=== PATIENT | male | born 1930 | race Asian ===

== ENCOUNTER 2017-10-28 14:16 | Inpatient (IN) | payer MEDICARE, OTHER ==
[2017-10-28] MEDS: SOD CHLORIDE 0.9% 500 ML IV (15:42)
[2017-10-28] MEDS: NITROGLYCERIN 2% 1 GM OINT PKT TD (15:54)
[2017-10-28 15:58] LABS: ADD MAN DIFF? NO
[2017-10-28 16:00] LABS: BASOPHILS % 0.4 % (0.0-2.0); EOSINOPHILS # 0.1 10^3/ul (0.0-0.5); EOSINOPHILS % 1.1 % (0.0-7.0); HEMATOCRIT 38.2 % (42.0-52.0); LYMPHOCYTES # 1.7 10^3/ul (0.8-2.9); MEAN CORPUSCULAR HEMOGLOBIN 32.9 pg (29.0-33.0); MEAN CORPUSCULAR VOLUME 96.7 fl (82.0-101.0); MEAN PLATELET VOLUME 9.3 fl (7.4-10.4); MONOCYTE # 0.5 10^3/ul (0.3-0.9); MONOCYTES % 9.2 % (0.0-11.0); NEUTROPHIL # 3.3 10^3/ul (1.6-7.5); NEUTROPHILS % 58.9 % (39.0-77.0); PLATELET COUNT 180 10^3/UL (140-415); RED BLOOD COUNT 3.95 10^6/ul (4.70-6.10); RED CELL DISTRIBUTION WIDTH 13.1 % (11.5-14.5)
[2017-10-28 16:00] LABS: WHITE BLOOD COUNT 5.7 10^3/ul (4.8-10.8)
[2017-10-28 16:19] LABS: INR 1.39; PROTIME 17.3 Sec (11.9-14.9); PT RATIO 1.4
[2017-10-28 16:20] LABS: PARTIAL THROMBOPLASTIN TIME 41.7 Sec (25.0-35.0)
[2017-10-28 16:27] LABS: ANION GAP 17 (8-16); BLOOD UREA NITROGEN 19 mg/dl (7-20); CALCIUM 9.3 mg/dl (8.4-10.2); CARBON DIOXIDE 28 mmol/L (21-31); CHLORIDE 98 mmol/L (97-110); CREATININE 1.04 mg/dl (0.61-1.24); GLUCOSE 127 mg/dl (70-220); POTASSIUM 4.1 mmol/L (3.5-5.1); SODIUM 139 mmol/L (135-144)
[2017-10-28 16:38] LABS: TROPONIN-I < 0.012 ng/ml (0.00-0.12)
[2017-10-28 17:38] LABS: ADD UMIC YES; UR ASCORBIC ACID 40 mg/dL (NEGATIVE); UR BACTERIA FEW /HPF (NONE SEEN); UR BILIRUBIN (Dip) NEGATIVE (NEGATIVE); UR BLOOD (Dip) NEGATIVE (NEGATIVE); UR CALCIUM OXALATE CRYSTAL FEW /HPF (NONE SEEN); UR CLARITY SLIGHTLY CLOUDY (CLEAR); UR COLOR AMBER (YELLOW); UR GLUCOSE (Dip) NEGATIVE (NEGATIVE); UR KETONES (Dip) NEGATIVE (NEGATIVE); UR LEUKOCYTE ESTERASE (Dip) NEGATIVE Leu/ul (NEGATIVE); UR MUCUS MANY /HPF (NONE SEEN); UR NITRITE (Dip) NEGATIVE (NEGATIVE); UR RBC 4 /HPF (0-5); UR SPECIFIC GRAVITY (Dip) 1.023 (1.003-1.030); UR TOTAL PROTEIN (Dip) 2+ mg/dl (NEGATIVE); UR UROBILINOGEN (Dip) 2+ mg/dL (NEGATIVE); UR WBC 1 /HPF (0-5)
[2017-10-28] MEDS ORDERED: ONDANSETRON 4 MG INJ IV (20:00)
[2017-10-28 21:39] LABS: COLLAGEN/ADP 143 Secs. (40-147); COLLAGEN/EPI > 300 Secs. (51-198)
[2017-10-28] MEDS: SOD CHLORIDE 0.9% 1,000 ML IV (21:42)
[2017-10-28] MEDS: DOCUSATE SODIUM 100 MG CAP PO (21:42)
[2017-10-28] MEDS: NACL 0.9% 3 ML SYG IV (21:42)
[2017-10-29] MEDS: LEVETIRACETAM 500 MG (PMX) 100 ML IVPB ×3 (00:01→20:58)
[2017-10-29] MEDS: HYDROmorphONE 0.5 MG/0.5 ML SYG IV (04:00)
[2017-10-29] MEDS: PANTOPRAZOLE 40 MG INJ IV (05:31)
[2017-10-29] MEDS: SOD CHLORIDE 0.9% 1,000 ML IV ×2 (05:32→16:43)
[2017-10-29 05:40] LABS: ADD MAN DIFF? NO
[2017-10-29 06:02] LABS: WHITE BLOOD COUNT 5.7 10^3/ul (4.8-10.8)
[2017-10-29 06:02] LABS: BASOPHILS % 0.4 % (0.0-2.0); EOSINOPHILS # 0.1 10^3/ul (0.0-0.5); EOSINOPHILS % 1.9 % (0.0-7.0); HEMATOCRIT 31.6 % (42.0-52.0); HEMOGLOBIN 10.7 g/dl (14.0-18.0); LYMPHOCYTES # 1.7 10^3/ul (0.8-2.9); LYMPHOCYTES % 30.6 % (15.0-51.0); MEAN CORPUSCULAR HEMOGLOBIN 32.7 pg (29.0-33.0); MEAN CORPUSCULAR HGB CONC 33.9 g/dl (32.0-37.0); MEAN CORPUSCULAR VOLUME 96.6 fl (82.0-101.0); MEAN PLATELET VOLUME 9.7 fl (7.4-10.4); MONOCYTE # 0.6 10^3/ul (0.3-0.9); MONOCYTES % 9.7 % (0.0-11.0); NEUTROPHIL # 3.2 10^3/ul (1.6-7.5); PLATELET COUNT 164 10^3/UL (140-415); RED BLOOD COUNT 3.27 10^6/ul (4.70-6.10); RED CELL DISTRIBUTION WIDTH 13.2 % (11.5-14.5)
[2017-10-29 06:19] LABS: ANION GAP 11 (8-16); BLOOD UREA NITROGEN 16 mg/dl (7-20); CALCIUM 8.7 mg/dl (8.4-10.2); CARBON DIOXIDE 28 mmol/L (21-31); CHLORIDE 104 mmol/L (97-110); CHOLESTEROL 89 mg/dl (100-200); CREATININE 0.89 mg/dl (0.61-1.24); GLUCOSE 109 mg/dl (70-220); HDL CHOLESTEROL 29 mg/dl (31-75); LDL CHOLESTEROL,CALCULATED 47 mg/dl; PHOSPHORUS 3.9 mg/dl (2.5-4.9); SODIUM 139 mmol/L (135-144); TRIGLYCERIDES 67 mg/dl (0-149)
[2017-10-29 07:26] LABS: HEMOGLOBIN A1C 5.4 % (0-5.9)
[2017-10-29] MEDS: DOCUSATE SODIUM 100 MG CAP PO ×2 (09:36→20:58)
[2017-10-29] MEDS: ACETAMINOPHEN 325 MG TAB PO (09:40)
[2017-10-30] MEDS: SOD CHLORIDE 0.9% 1,000 ML IV ×2 (01:47→06:21)
[2017-10-30] MEDS: PANTOPRAZOLE 40 MG INJ IV (06:22)
[2017-10-30] MEDS: LEVETIRACETAM 500 MG (PMX) 100 ML IVPB ×2 (09:10→21:11)
[2017-10-30] MEDS: DOCUSATE SODIUM 100 MG CAP PO ×2 (09:10→21:11)
[2017-10-30] MEDS: AMLODIPINE 5 MG TAB PO (12:45)
[2017-10-31] MEDS: hydrALAzine 20 MG INJ IV (04:57)
[2017-10-31] MEDS: PANTOPRAZOLE 40 MG INJ IV (06:21)
[2017-10-31 07:25] LABS: ADD MAN DIFF? NO
[2017-10-31 07:27] LABS: BASOPHILS % 0.5 % (0.0-2.0); EOSINOPHILS # 0.1 10^3/ul (0.0-0.5); HEMATOCRIT 36.4 % (42.0-52.0); HEMOGLOBIN 12.7 g/dl (14.0-18.0); LYMPHOCYTES # 1.9 10^3/ul (0.8-2.9); LYMPHOCYTES % 31.4 % (15.0-51.0); MEAN CORPUSCULAR HEMOGLOBIN 33.2 pg (29.0-33.0); MEAN CORPUSCULAR HGB CONC 34.9 g/dl (32.0-37.0); MEAN PLATELET VOLUME 9.4 fl (7.4-10.4); MONOCYTE # 0.5 10^3/ul (0.3-0.9); MONOCYTES % 8.6 % (0.0-11.0); NEUTROPHIL # 3.5 10^3/ul (1.6-7.5); NEUTROPHILS % 58.3 % (39.0-77.0); PLATELET COUNT 175 10^3/UL (140-415); RED BLOOD COUNT 3.83 10^6/ul (4.70-6.10); RED CELL DISTRIBUTION WIDTH 13.2 % (11.5-14.5)
[2017-10-31 07:27] LABS: WHITE BLOOD COUNT 5.9 10^3/ul (4.8-10.8)
[2017-10-31 07:48] LABS: ANION GAP 10 (8-16); BLOOD UREA NITROGEN 12 mg/dl (7-20); CALCIUM 8.7 mg/dl (8.4-10.2); CARBON DIOXIDE 27 mmol/L (21-31); CHLORIDE 106 mmol/L (97-110); CREATININE 0.68 mg/dl (0.61-1.24); GLUCOSE 113 mg/dl (70-220); IRON 76 ug/dl (35-150); POTASSIUM 3.6 mmol/L (3.5-5.1); SODIUM 139 mmol/L (135-144)
[2017-10-31 07:58] LABS: % IRON SATURATION 26 % SAT (22-52); TOTAL IRON BINDING CAPACITY 296 ug/dl (241-421)
[2017-10-31 08:23] LABS: FERRITIN 95.8 ng/ml (11.1-264.0)
[2017-10-31] MEDS: LEVETIRACETAM 500 MG (PMX) 100 ML IVPB ×2 (08:38→21:46)
[2017-10-31] MEDS: AMLODIPINE 5 MG TAB PO (08:39)
[2017-10-31] MEDS: DOCUSATE SODIUM 100 MG CAP PO ×2 (08:39→21:46)
[2017-11-01] MEDS: PANTOPRAZOLE 40 MG INJ IV (06:24)
[2017-11-01] MEDS: LEVETIRACETAM 500 MG (PMX) 100 ML IVPB ×2 (08:20→21:31)
[2017-11-01] MEDS: DOCUSATE SODIUM 100 MG CAP PO ×2 (08:21→20:56)
[2017-11-01] MEDS: AMLODIPINE 5 MG TAB PO (08:22)
[2017-11-01] MEDS: METOPROLOL (XL) 25 MG TAB PO (15:44)
[2017-11-01] MEDS: ATORVASTATIN 10 MG TAB PO (20:56)
[2017-11-01] MEDS: RANOLAZINE (SR) 500 MG TAB PO (20:56)
[2017-11-02] MEDS: PANTOPRAZOLE 40 MG INJ IV (05:47)
[2017-11-02] MEDS: LEVOTHYROXINE 88 MCG TAB PO (07:06)
[2017-11-02] MEDS: RANOLAZINE (SR) 500 MG TAB PO ×2 (08:15→20:50)
[2017-11-02] MEDS: VALSARTAN 160 MG TAB PO (08:16)
[2017-11-02] MEDS: DOCUSATE SODIUM 100 MG CAP PO ×2 (08:16→20:50)
[2017-11-02] MEDS: FUROSEMIDE 40 MG TAB PO (08:16)
[2017-11-02] MEDS: METOPROLOL (XL) 25 MG TAB PO (08:17)
[2017-11-02] MEDS: AMLODIPINE 5 MG TAB PO (08:17)
[2017-11-02] MEDS: LEVETIRACETAM 500 MG (PMX) 100 ML IVPB ×2 (08:18→20:50)
[2017-11-02 10:36] LABS: COLLAGEN/ADP 114 Secs. (40-147); COLLAGEN/EPI 227 Secs. (51-198)
[2017-11-02] MEDS: ATORVASTATIN 10 MG TAB PO (20:50)
[2017-11-03] MEDS: PANTOPRAZOLE 40 MG INJ IV (06:42)
[2017-11-03] MEDS ORDERED: CA CHLORIDE 10% 10 ML SYRINGE (07:00)
[2017-11-03] MEDS: LEVOTHYROXINE 88 MCG TAB PO (07:00)
[2017-11-03] MEDS: RANOLAZINE (SR) 500 MG TAB PO ×2 (09:00→21:55)
[2017-11-03] MEDS: VALSARTAN 160 MG TAB PO (09:00)
[2017-11-03] MEDS: DOCUSATE SODIUM 100 MG CAP PO ×2 (09:00→20:05)
[2017-11-03] MEDS: AMLODIPINE 5 MG TAB PO (09:00)
[2017-11-03] MEDS: METOPROLOL (XL) 25 MG TAB PO (09:00)
[2017-11-03] MEDS: FUROSEMIDE 40 MG TAB PO (09:00)
[2017-11-03] MEDS: LEVETIRACETAM 500 MG (PMX) 100 ML IVPB ×2 (09:21→20:22)
[2017-11-03] MEDS ORDERED: FENTAnyl 50 MCG/ML VIAL (09:40)
[2017-11-03 10:03] LABS: COLLAGEN/EPI 156 Secs. (51-198)
[2017-11-03] MEDS ORDERED: ETOMIDATE 20 MG INJ (10:21)
[2017-11-03] MEDS ORDERED: LIDOCAINE 100 MG SYRINGE (10:21)
[2017-11-03] MEDS ORDERED: LIDOCAINE 2% (SDV) 5 ML INJ (11:28)
[2017-11-03] MEDS ORDERED: VANCOMYCIN 1 GM INJ (11:29)
[2017-11-03] MEDS: NEOMYC/POLYMYX/BACIT 30 GM OINT (11:50)
[2017-11-03] MEDS: BACITRACIN 50000 UNITS INJ (11:52)
[2017-11-03] MEDS: LIDOCAINE 1%/EPI 30 ML INJ (11:52)
[2017-11-03] MEDS: THROMBIN 5000 UNIT VIAL ×2 (12:00)
[2017-11-03] MEDS: GELATIN SIZE 100 SPONGE (12:00)
[2017-11-03] MEDS ORDERED: ONDANSETRON 4 MG INJ (12:34)
[2017-11-03] MEDS ORDERED: METOCLOPRAMIDE 10 MG INJ (12:35)
[2017-11-03] MEDS ORDERED: SUGAMMADEX SODIUM 200 MG/2 ML VIAL IV (12:37)
[2017-11-03] MEDS ORDERED: ACETAMINOPHEN 1000MG/100ML IV 200 ML (12:57)
[2017-11-03] MEDS ORDERED: VANCOMYCIN IV PER PHARMACY XX (13:00)
[2017-11-03] MEDS ORDERED: CEPASTAT LOZENGE MT (13:00)
[2017-11-03] MEDS ORDERED: IPRATROPIUM (NEB) 0.5 MG/2.5 ML AMP HHN ×2 (13:30→20:00)
[2017-11-03] MEDS ORDERED: METOCLOPRAMIDE 10 MG INJ IV ×2 (13:30→20:00)
[2017-11-03] MEDS ORDERED: FENTAnyl 50 MCG/ML VIAL IV ×4 (13:30→20:00)
[2017-11-03] MEDS ORDERED: DIPHENHYDRAMINE 50 MG INJ IV ×2 (13:30→20:00)
[2017-11-03] MEDS ORDERED: hydrALAzine 20 MG INJ IV ×2 (13:30→20:00)
[2017-11-03] MEDS ORDERED: ONDANSETRON 4 MG INJ IV ×2 (13:30→20:00)
[2017-11-03] MEDS ORDERED: HYDROmorphONE (0.2 MG/ML) 10ML SYG IV ×4 (13:30→20:00)
[2017-11-03] MEDS ORDERED: LABETALOL HCL 20MG INJ IV ×2 (13:30→20:00)
[2017-11-03] MEDS ORDERED: D5-NS + KCL 20 MEQ 1,000 ML IV (15:00)
[2017-11-03] MEDS: hydrALAzine 20 MG INJ IV (15:19)
[2017-11-03] MEDS ORDERED: niCARdipine-NS 0.1MG/ML DRIP 200 ML IV (16:00)
[2017-11-03] MEDS: niCARdipine 25 MG in SOD CHLORIDE 0.9% 250 ML IV ×2 (16:08→20:23)
[2017-11-03] MEDS: HYDROmorphONE 0.5 MG/0.5 ML SYG IV (16:22)
[2017-11-03] MEDS: ACETAMINOPHEN 325 MG TAB PO (18:19)
[2017-11-03] MEDS: ATORVASTATIN 10 MG TAB PO (20:05)
[2017-11-03] MEDS: morphine 2 MG INJ IV (20:06)
[2017-11-03] MEDS ORDERED: VANCOMYCIN 750 MG in DEXTROSE 5% 150 ML IVPB (23:00)
[2017-11-04] MEDS: niCARdipine 25 MG in SOD CHLORIDE 0.9% 250 ML IV ×2 (01:09→06:19)
[2017-11-04 05:14] LABS: ADD MAN DIFF? NO
[2017-11-04] MEDS: PANTOPRAZOLE (EC) 40 MG TAB PO (05:35)
[2017-11-04 05:41] LABS: WHITE BLOOD COUNT 7.5 10^3/ul (4.8-10.8)
[2017-11-04 05:41] LABS: BASOPHILS % 0.3 % (0.0-2.0); EOSINOPHILS # 0.1 10^3/ul (0.0-0.5); EOSINOPHILS % 0.7 % (0.0-7.0); HEMATOCRIT 32.6 % (42.0-52.0); HEMOGLOBIN 11.1 g/dl (14.0-18.0); LYMPHOCYTES % 13.1 % (15.0-51.0); MEAN CORPUSCULAR HEMOGLOBIN 32.8 pg (29.0-33.0); MEAN CORPUSCULAR VOLUME 96.4 fl (82.0-101.0); MEAN PLATELET VOLUME 9.8 fl (7.4-10.4); MONOCYTE # 0.8 10^3/ul (0.3-0.9); NEUTROPHIL # 5.7 10^3/ul (1.6-7.5); NEUTROPHILS % 75.6 % (39.0-77.0); PLATELET COUNT 156 10^3/UL (140-415); RED BLOOD COUNT 3.38 10^6/ul (4.70-6.10); RED CELL DISTRIBUTION WIDTH 13.6 % (11.5-14.5)
[2017-11-04 05:49] LABS: ANION GAP 10 (8-16); BLOOD UREA NITROGEN 21 mg/dl (7-20); CALCIUM 8.7 mg/dl (8.4-10.2); CARBON DIOXIDE 24 mmol/L (21-31); CHLORIDE 109 mmol/L (97-110); CREATININE 0.87 mg/dl (0.61-1.24); GLUCOSE 137 mg/dl (70-220); SODIUM 139 mmol/L (135-144)
[2017-11-04] MEDS: LEVOTHYROXINE 88 MCG TAB PO (08:37)
[2017-11-04] MEDS: FUROSEMIDE 40 MG TAB PO (08:37)
[2017-11-04] MEDS: AMLODIPINE 5 MG TAB PO (08:40)
[2017-11-04] MEDS: DOCUSATE SODIUM 100 MG CAP PO ×2 (08:40→21:35)
[2017-11-04] MEDS: VALSARTAN 160 MG TAB PO (08:41)
[2017-11-04] MEDS: METOPROLOL (XL) 25 MG TAB PO (08:41)
[2017-11-04] MEDS: LEVETIRACETAM 500 MG (PMX) 100 ML IVPB ×2 (08:57→21:35)
[2017-11-04] MEDS: RANOLAZINE (SR) 500 MG TAB PO ×2 (08:57→21:35)
[2017-11-04] MEDS: VANCOMYCIN 1 GM 250 ML IVPB (12:11)
[2017-11-04] MEDS: hydrALAzine 20 MG INJ IV (16:50)
[2017-11-04] MEDS: LABETALOL HCL 20MG INJ IV (17:54)
[2017-11-04 18:58] LABS: ADD UMIC YES; UR ASCORBIC ACID NEGATIVE (NEGATIVE); UR BILIRUBIN (Dip) NEGATIVE (NEGATIVE); UR BLOOD (Dip) 3+ mg/dL (NEGATIVE); UR CLARITY CLOUDY (CLEAR); UR COLOR AMBER (YELLOW); UR GLUCOSE (Dip) NEGATIVE (NEGATIVE); UR KETONES (Dip) NEGATIVE (NEGATIVE); UR LEUKOCYTE ESTERASE (Dip) TRACE Leu/ul (NEGATIVE); UR MUCUS MODERATE /HPF (NONE SEEN); UR NITRITE (Dip) NEGATIVE (NEGATIVE); UR RBC > 182 /HPF (0-5); UR SPECIFIC GRAVITY (Dip) 1.023 (1.003-1.030); UR TOTAL PROTEIN (Dip) 2+ mg/dl (NEGATIVE); UR UROBILINOGEN (Dip) 1+ mg/dL (NEGATIVE); UR WBC 16 /HPF (0-5)
[2017-11-04] MEDS: ATORVASTATIN 10 MG TAB PO (21:35)
[2017-11-05] MEDS: LEVOTHYROXINE 88 MCG TAB PO (06:59)
[2017-11-05] MEDS: PANTOPRAZOLE (EC) 40 MG TAB PO (06:59)
[2017-11-05] MEDS: LEVETIRACETAM 500 MG (PMX) 100 ML IVPB ×2 (08:31→20:59)
[2017-11-05] MEDS: DEXAMETHASONE 4 MG/ML 1 ML INJ IV ×3 (08:33→21:46)
[2017-11-05] MEDS: FAMOTIDINE 20 MG TAB PO (08:34)
[2017-11-05] MEDS: DOCUSATE SODIUM 100 MG CAP PO ×2 (08:34→21:46)
[2017-11-05] MEDS: AMLODIPINE 5 MG TAB PO (08:34)
[2017-11-05] MEDS: VALSARTAN 160 MG TAB PO (08:34)
[2017-11-05] MEDS: RANOLAZINE (SR) 500 MG TAB PO ×2 (08:34→20:58)
[2017-11-05] MEDS: METOPROLOL (XL) 25 MG TAB PO (08:35)
[2017-11-05] MEDS: HYDROCODONE/APAP (5/325) TAB PO (10:05)
[2017-11-05] MEDS: hydrALAzine 20 MG INJ IV ×2 (10:11→18:38)
[2017-11-05] MEDS: VANCOMYCIN 1 GM 250 ML IVPB (10:14)
[2017-11-05] MEDS: ATORVASTATIN 10 MG TAB PO (20:59)
[2017-11-06] MEDS: hydrALAzine 20 MG INJ IV ×2 (02:23→06:45)
[2017-11-06] MEDS: HYDROmorphONE 0.5 MG/0.5 ML SYG IV (05:23)
[2017-11-06] MEDS: PANTOPRAZOLE (EC) 40 MG TAB PO (05:23)
[2017-11-06] MEDS: DEXAMETHASONE 4 MG/ML 1 ML INJ IV (05:23)
[2017-11-06] MEDS: LEVOTHYROXINE 88 MCG TAB PO (06:45)
[2017-11-06] MEDS: DOCUSATE SODIUM 100 MG CAP PO ×2 (08:17→21:15)
[2017-11-06] MEDS: FAMOTIDINE 20 MG TAB PO (08:17)
[2017-11-06] MEDS: AMLODIPINE 5 MG TAB PO (08:17)
[2017-11-06] MEDS: VALSARTAN 160 MG TAB PO (08:17)
[2017-11-06] MEDS: RANOLAZINE (SR) 500 MG TAB PO ×2 (08:17→21:15)
[2017-11-06] MEDS: METOPROLOL (XL) 25 MG TAB PO (08:18)
[2017-11-06] MEDS: LEVETIRACETAM 500 MG (PMX) 100 ML IVPB ×2 (08:21→21:15)
[2017-11-06] MEDS: VANCOMYCIN 1 GM 250 ML IVPB (11:45)
[2017-11-06 11:47] LABS: VANCOMYCIN,TROUGH 8.2 ug/ml (10.0-20.0)
[2017-11-06] MEDS: HYDROCODONE/APAP (5/325) TAB PO (11:55)
[2017-11-06] MEDS: ATORVASTATIN 10 MG TAB PO (21:15)
[2017-11-06] MEDS: VANCOMYCIN 750 MG in DEXTROSE 5% 150 ML IVPB (22:57)
[2017-11-07] MEDS: LEVOTHYROXINE 88 MCG TAB PO (06:14)
[2017-11-07] MEDS: PANTOPRAZOLE (EC) 40 MG TAB PO (06:14)
[2017-11-07 06:44] LABS: BLOOD UREA NITROGEN 27 mg/dl (7-20)
[2017-11-07 06:44] LABS: CREATININE 0.88 mg/dl (0.61-1.24)
[2017-11-07] MEDS: VALSARTAN 160 MG TAB PO (09:03)
[2017-11-07] MEDS: RANOLAZINE (SR) 500 MG TAB PO ×2 (09:04→21:16)
[2017-11-07] MEDS: FAMOTIDINE 20 MG TAB PO (09:04)
[2017-11-07] MEDS: DOCUSATE SODIUM 100 MG CAP PO ×2 (09:04→21:17)
[2017-11-07] MEDS: AMLODIPINE 5 MG TAB PO (09:05)
[2017-11-07] MEDS: METOPROLOL (XL) 25 MG TAB PO (09:06)
[2017-11-07] MEDS: LEVETIRACETAM 500 MG (PMX) 100 ML IVPB ×2 (09:11→22:07)
[2017-11-07] MEDS: VANCOMYCIN 750 MG in DEXTROSE 5% 150 ML IVPB (11:30)
[2017-11-07] MEDS ORDERED: QUETIAPINE 25 MG TAB PO (13:30)
[2017-11-07] MEDS: SOD CHLORIDE 0.9% 1,000 ML IV (13:44)
[2017-11-07] MEDS: hydrALAzine 20 MG INJ IV (21:15)
[2017-11-07] MEDS: ATORVASTATIN 10 MG TAB PO (21:17)
[2017-11-08] MEDS: hydrALAzine 20 MG INJ IV ×2 (05:04→12:02)
[2017-11-08] MEDS: PANTOPRAZOLE (EC) 40 MG TAB PO (05:04)
[2017-11-08 06:53] LABS: ADD MAN DIFF? NO
[2017-11-08 06:56] LABS: BASOPHILS % 0.1 % (0.0-2.0); EOSINOPHILS # 0.2 10^3/ul (0.0-0.5); EOSINOPHILS % 1.7 % (0.0-7.0); HEMATOCRIT 33.7 % (42.0-52.0); HEMOGLOBIN 11.6 g/dl (14.0-18.0); LYMPHOCYTES % 21.9 % (15.0-51.0); MEAN CORPUSCULAR HGB CONC 34.4 g/dl (32.0-37.0); MEAN PLATELET VOLUME 9.6 fl (7.4-10.4); MONOCYTES % 10.6 % (0.0-11.0); NEUTROPHIL # 5.9 10^3/ul (1.6-7.5); NEUTROPHILS % 65.5 % (39.0-77.0); PLATELET COUNT 178 10^3/UL (140-415); RED BLOOD COUNT 3.51 10^6/ul (4.70-6.10); RED CELL DISTRIBUTION WIDTH 13.8 % (11.5-14.5)
[2017-11-08 07:08] LABS: AMMONIA < 9 umol/l (9-30)
[2017-11-08] MEDS: LEVOTHYROXINE 88 MCG TAB PO (07:21)
[2017-11-08 07:32] LABS: ANION GAP 10 (8-16); BLOOD UREA NITROGEN 21 mg/dl (7-20); CALCIUM 8.4 mg/dl (8.4-10.2); CARBON DIOXIDE 27 mmol/L (21-31); CHLORIDE 107 mmol/L (97-110); CREATININE 0.84 mg/dl (0.61-1.24); GLUCOSE 103 mg/dl (70-220); MAGNESIUM 1.9 mg/dl (1.7-2.5); PHOSPHORUS 3.3 mg/dl (2.5-4.9); POTASSIUM 3.6 mmol/L (3.5-5.1); SODIUM 140 mmol/L (135-144)
[2017-11-08] MEDS: FAMOTIDINE 20 MG TAB PO (08:49)
[2017-11-08] MEDS: LEVETIRACETAM 500 MG (PMX) 100 ML IVPB ×2 (08:49→22:07)
[2017-11-08] MEDS: VALSARTAN 160 MG TAB PO (08:49)
[2017-11-08] MEDS: RANOLAZINE (SR) 500 MG TAB PO ×2 (08:50→22:08)
[2017-11-08] MEDS: AMLODIPINE 5 MG TAB PO ×2 (08:50→17:50)
[2017-11-08] MEDS: DOCUSATE SODIUM 100 MG CAP PO ×2 (08:50→22:08)
[2017-11-08] MEDS: METOPROLOL (XL) 25 MG TAB PO (09:00)
[2017-11-08] MEDS: ATORVASTATIN 10 MG TAB PO (22:08)
[2017-11-09] MEDS: hydrALAzine 20 MG INJ IV (03:16)
[2017-11-09] MEDS: PANTOPRAZOLE (EC) 40 MG TAB PO (06:14)
[2017-11-09] MEDS: LABETALOL HCL 20MG INJ IV (06:14)
[2017-11-09] MEDS: LEVOTHYROXINE 88 MCG TAB PO (06:53)
[2017-11-09] MEDS: AMLODIPINE 10 MG TAB PO ×2 (07:17→07:19)
[2017-11-09] MEDS: VALSARTAN 160 MG TAB PO ×2 (07:17→07:18)
[2017-11-09] MEDS: RANOLAZINE (SR) 500 MG TAB PO ×2 (09:01→21:05)
[2017-11-09] MEDS: DONEPEZIL 5 MG TAB PO (09:01)
[2017-11-09] MEDS: FAMOTIDINE 20 MG TAB PO (09:02)
[2017-11-09] MEDS: DOCUSATE SODIUM 100 MG CAP PO ×2 (09:02→19:51)
[2017-11-09] MEDS: LEVETIRACETAM 500 MG (PMX) 100 ML IVPB ×2 (09:05→21:03)
[2017-11-09 11:32] LABS: WHITE BLOOD COUNT 6.3 10^3/ul (4.8-10.8)
[2017-11-09 11:32] LABS: HEMATOCRIT 33.7 % (42.0-52.0); HEMOGLOBIN 11.7 g/dl (14.0-18.0); MEAN CORPUSCULAR HEMOGLOBIN 33.2 pg (29.0-33.0); MEAN CORPUSCULAR HGB CONC 34.7 g/dl (32.0-37.0); MEAN CORPUSCULAR VOLUME 95.7 fl (82.0-101.0); MEAN PLATELET VOLUME 9.3 fl (7.4-10.4); PLATELET COUNT 181 10^3/UL (140-415); RED BLOOD COUNT 3.52 10^6/ul (4.70-6.10); RED CELL DISTRIBUTION WIDTH 13.4 % (11.5-14.5)
[2017-11-09 11:47] LABS: ADD MAN DIFF? YES
[2017-11-09 12:04] LABS: ANION GAP 11 (8-16); BLOOD UREA NITROGEN 14 mg/dl (7-20); CALCIUM 8.2 mg/dl (8.4-10.2); CARBON DIOXIDE 28 mmol/L (21-31); CHLORIDE 104 mmol/L (97-110); CREATININE 0.81 mg/dl (0.61-1.24); GLUCOSE 162 mg/dl (70-220); MAGNESIUM 1.9 mg/dl (1.7-2.5); PHOSPHORUS 3.3 mg/dl (2.5-4.9); POTASSIUM 3.5 mmol/L (3.5-5.1); SODIUM 139 mmol/L (135-144)
[2017-11-09] MEDS: ATORVASTATIN 10 MG TAB PO (19:50)
[2017-11-10] MEDS: PANTOPRAZOLE (EC) 40 MG TAB PO (06:14)
[2017-11-10] MEDS: LEVOTHYROXINE 88 MCG TAB PO (06:14)
[2017-11-10] MEDS: VALSARTAN 160 MG TAB PO (08:47)
[2017-11-10] MEDS: hydrALAzine 20 MG INJ IV (08:47)
[2017-11-10] MEDS: LEVETIRACETAM 500 MG (PMX) 100 ML IVPB (08:47)
[2017-11-10] MEDS: DOCUSATE SODIUM 100 MG CAP PO ×2 (08:48→21:27)
[2017-11-10] MEDS: DONEPEZIL 5 MG TAB PO (08:48)
[2017-11-10] MEDS: AMLODIPINE 10 MG TAB PO (08:48)
[2017-11-10] MEDS: RANOLAZINE (SR) 500 MG TAB PO ×2 (08:48→21:27)
[2017-11-10] MEDS: FAMOTIDINE 20 MG TAB PO (08:49)
[2017-11-10] MEDS: ATORVASTATIN 10 MG TAB PO (21:27)
[2017-11-10] MEDS: LEVETIRACETAM 500 MG TAB PO (21:28)
[2017-11-11] MEDS: LEVOTHYROXINE 88 MCG TAB PO (06:09)
[2017-11-11] MEDS: DONEPEZIL 5 MG TAB PO (08:54)
[2017-11-11] MEDS: RANOLAZINE (SR) 500 MG TAB PO (08:54)
[2017-11-11] MEDS: DOCUSATE SODIUM 100 MG CAP PO (08:54)
[2017-11-11] MEDS: LEVETIRACETAM 500 MG TAB PO (08:55)
[2017-11-11] MEDS: AMLODIPINE 10 MG TAB PO (08:55)
[2017-11-11] MEDS: VALSARTAN 160 MG TAB PO (08:55)
[2017-11-11] MEDS: FAMOTIDINE 20 MG TAB PO (08:55)
== END 2017-11-11 10:22 | DRG 25 ==
LOC: TEL 20:57 → ICU 11-03 14:20 → TEL 11-05 18:21 → E/R 14:16 → TEL 10-29 18:05 → ICU 11-03 15:10 → TEL 10-29 23:03 → ICU 18:34
PROC: 009430Z Drainage of Intracranial Subdural Space with Drainage Device, Percutaneous Approach (ICD-10-PCS; principal; 2017-11-03 10:00)
DX: I62.01 Nontraumatic acute subdural hemorrhage (principal); G93.40 Encephalopathy, unspecified; Z95.1 Presence of aortocoronary bypass graft; I35.0 Nonrheumatic aortic (valve) stenosis; Z79.01 Long term (current) use of anticoagulants; I25.10 Atherosclerotic heart disease of native coronary artery without angina pectoris; I10 Essential (primary) hypertension; E03.9 Hypothyroidism, unspecified; E78.5 Hyperlipidemia, unspecified; N40.0 Benign prostatic hyperplasia without lower urinary tract symptoms; R55 Syncope and collapse; Z87.891 Personal history of nicotine dependence; Z86.73 Personal history of transient ischemic attack (TIA), and cerebral infarction without residual deficits; Z95.810 Presence of automatic (implantable) cardiac defibrillator; Z95.5 Presence of coronary angioplasty implant and graft; Z79.02 Long term (current) use of antithrombotics/antiplatelets
CPT/HCPCS: 36415; 70450; 71045; 80048; 80061; 80202; 81001; 82140; 82565; 82728; 83036; 83540; 83735; 84100; 84484; 84520; 85025; 85576; 85610; 85730; 86850; 86900; 86901; 87081; 87086; 92610; 93005; 93306; 97110; 97116; 97162; 97530; 99291-25

== ENCOUNTER 2017-11-11 11:03 | Inpatient (IN) | payer MEDICARE, OTHER ==
[2017-11-11] MEDS ORDERED: ACETAMINOPHEN 325 MG TAB PO ×2 (12:00→13:21)
[2017-11-11] MEDS ORDERED: LACTULOSE 30ML CUP PO (12:00)
[2017-11-11] MEDS ORDERED: MAGNESIUM HYDROXIDE 30ML CUP PO (12:00)
[2017-11-11] MEDS ORDERED: BISACODYL 10 MG SUPP PR (12:00)
[2017-11-11] MEDS ORDERED: DOCUSATE SODIUM 100 MG CAP PO (13:21)
[2017-11-11] MEDS ORDERED: CEPASTAT LOZENGE MT (13:21)
[2017-11-11] MEDS ORDERED: hydrALAzine 20 MG INJ IV (13:21)
[2017-11-11] MEDS ORDERED: HYDROCODONE/APAP (5/325) TAB PO (13:21)
[2017-11-11] MEDS ORDERED: ONDANSETRON 4 MG INJ IV (13:21)
[2017-11-11] MEDS ORDERED: morphine 2 MG INJ IV (13:21)
[2017-11-11] MEDS ORDERED: NACL 0.9% 3 ML SYG IV (13:23)
[2017-11-11] MEDS ORDERED: [UNRECOGNIZED DRUG - REMARK] XX (13:30)
[2017-11-11 15:59] LABS: ADD UMIC YES; UR ASCORBIC ACID 20 mg/dL (NEGATIVE); UR BILIRUBIN (Dip) NEGATIVE (NEGATIVE); UR BLOOD (Dip) NEGATIVE (NEGATIVE); UR CLARITY CLEAR (CLEAR); UR COLOR YELLOW (YELLOW); UR GLUCOSE (Dip) NEGATIVE (NEGATIVE); UR KETONES (Dip) NEGATIVE (NEGATIVE); UR LEUKOCYTE ESTERASE (Dip) NEGATIVE Leu/ul (NEGATIVE); UR NITRITE (Dip) NEGATIVE (NEGATIVE); UR RBC 1 /HPF (0-5); UR SPECIFIC GRAVITY (Dip) 1.011 (1.003-1.030); UR TOTAL PROTEIN (Dip) 1+ mg/dl (NEGATIVE); UR UROBILINOGEN (Dip) 1+ mg/dL (NEGATIVE); UR WBC 6 /HPF (0-5)
[2017-11-11] MEDS: SENNA TAB PO (21:01)
[2017-11-11] MEDS: DOCUSATE SODIUM 100 MG CAP PO (21:01)
[2017-11-11] MEDS: RANOLAZINE (SR) 500 MG TAB PO (21:01)
[2017-11-11] MEDS: ATORVASTATIN 10 MG TAB PO (21:01)
[2017-11-12] MEDS: LEVOTHYROXINE 88 MCG TAB PO (06:42)
[2017-11-12 08:55] LABS: ADD MAN DIFF? NO
[2017-11-12] MEDS: DOCUSATE SODIUM 100 MG CAP PO ×2 (08:55→20:49)
[2017-11-12] MEDS: FAMOTIDINE 20 MG TAB PO (08:55)
[2017-11-12] MEDS: RANOLAZINE (SR) 500 MG TAB PO ×2 (08:55→20:49)
[2017-11-12] MEDS: VALSARTAN 160 MG TAB PO (08:56)
[2017-11-12] MEDS: DONEPEZIL 5 MG TAB PO (08:56)
[2017-11-12 08:57] LABS: BASOPHILS % 0.5 % (0.0-2.0); EOSINOPHILS # 0.1 10^3/ul (0.0-0.5); EOSINOPHILS % 2.3 % (0.0-7.0); HEMOGLOBIN 12.1 g/dl (14.0-18.0); LYMPHOCYTES # 1.4 10^3/ul (0.8-2.9); LYMPHOCYTES % 23.6 % (15.0-51.0); MEAN CORPUSCULAR HEMOGLOBIN 33.1 pg (29.0-33.0); MEAN CORPUSCULAR HGB CONC 34.6 g/dl (32.0-37.0); MEAN CORPUSCULAR VOLUME 95.6 fl (82.0-101.0); MEAN PLATELET VOLUME 9.1 fl (7.4-10.4); MONOCYTE # 0.6 10^3/ul (0.3-0.9); MONOCYTES % 9.8 % (0.0-11.0); NEUTROPHIL # 3.6 10^3/ul (1.6-7.5); NEUTROPHILS % 63.4 % (39.0-77.0); PLATELET COUNT 202 10^3/UL (140-415); RED BLOOD COUNT 3.66 10^6/ul (4.70-6.10); RED CELL DISTRIBUTION WIDTH 13.3 % (11.5-14.5)
[2017-11-12 08:57] LABS: WHITE BLOOD COUNT 5.7 10^3/ul (4.8-10.8)
[2017-11-12] MEDS: AMLODIPINE 10 MG TAB PO (08:57)
[2017-11-12 09:32] LABS: ALANINE AMINOTRANSFERASE 29 IU/L (13-69); ALBUMIN 3.6 g/dl (3.3-4.9); ALKALINE PHOSPHATASE 44 IU/L (42-121); ANION GAP 11 (8-16); ASPARTATE AMINO TRANSFERASE 26 IU/L (15-46); BILIRUBIN,INDIRECT 0.5 mg/dl (0-1.1); BILIRUBIN,TOTAL 0.5 mg/dl (0.2-1.3); BLOOD UREA NITROGEN 14 mg/dl (7-20); CALCIUM 8.8 mg/dl (8.4-10.2); CARBON DIOXIDE 33 mmol/L (21-31); CHLORIDE 103 mmol/L (97-110); CREATININE 0.89 mg/dl (0.61-1.24); GLUCOSE 123 mg/dl (70-220); POTASSIUM 3.9 mmol/L (3.5-5.1); SODIUM 143 mmol/L (135-144); TOTAL PROTEIN 6.6 g/dl (6.1-8.1)
[2017-11-12] MEDS: TAMSULOSIN (SR) 0.4 MG CAP PO (20:49)
[2017-11-12] MEDS: SENNA TAB PO (20:49)
[2017-11-12] MEDS: ATORVASTATIN 10 MG TAB PO (20:49)
[2017-11-13] MEDS: LEVOTHYROXINE 88 MCG TAB PO (06:11)
[2017-11-13] MEDS: DONEPEZIL 5 MG TAB PO (08:23)
[2017-11-13] MEDS: FAMOTIDINE 20 MG TAB PO (08:23)
[2017-11-13] MEDS: RANOLAZINE (SR) 500 MG TAB PO ×2 (08:23→20:09)
[2017-11-13] MEDS: DOCUSATE SODIUM 100 MG CAP PO ×2 (08:23→20:08)
[2017-11-13] MEDS: AMLODIPINE 10 MG TAB PO (08:24)
[2017-11-13] MEDS: VALSARTAN 160 MG TAB PO (08:25)
[2017-11-13] MEDS: ATORVASTATIN 10 MG TAB PO (20:08)
[2017-11-13] MEDS: TAMSULOSIN (SR) 0.4 MG CAP PO (20:09)
[2017-11-13] MEDS: SENNA TAB PO (20:09)
[2017-11-14] MEDS: LEVOTHYROXINE 88 MCG TAB PO (05:36)
[2017-11-14 06:44] LABS: ADD MAN DIFF? NO
[2017-11-14 06:56] LABS: WHITE BLOOD COUNT 5.8 10^3/ul (4.8-10.8)
[2017-11-14 06:56] LABS: BASOPHILS % 0.7 % (0.0-2.0); EOSINOPHILS # 0.1 10^3/ul (0.0-0.5); EOSINOPHILS % 2.1 % (0.0-7.0); HEMATOCRIT 32.3 % (42.0-52.0); HEMOGLOBIN 11.2 g/dl (14.0-18.0); LYMPHOCYTES # 1.4 10^3/ul (0.8-2.9); LYMPHOCYTES % 23.8 % (15.0-51.0); MEAN CORPUSCULAR HEMOGLOBIN 33.1 pg (29.0-33.0); MEAN CORPUSCULAR HGB CONC 34.7 g/dl (32.0-37.0); MEAN CORPUSCULAR VOLUME 95.6 fl (82.0-101.0); MEAN PLATELET VOLUME 9.3 fl (7.4-10.4); MONOCYTE # 0.6 10^3/ul (0.3-0.9); MONOCYTES % 10.4 % (0.0-11.0); NEUTROPHIL # 3.6 10^3/ul (1.6-7.5); NEUTROPHILS % 62.7 % (39.0-77.0); PLATELET COUNT 177 10^3/UL (140-415); RED BLOOD COUNT 3.38 10^6/ul (4.70-6.10); RED CELL DISTRIBUTION WIDTH 13.1 % (11.5-14.5)
[2017-11-14 07:18] LABS: ANION GAP 10 (8-16); BLOOD UREA NITROGEN 16 mg/dl (7-20); CALCIUM 8.5 mg/dl (8.4-10.2); CARBON DIOXIDE 32 mmol/L (21-31); CHLORIDE 104 mmol/L (97-110); CREATININE 0.92 mg/dl (0.61-1.24); GLUCOSE 103 mg/dl (70-220); PHOSPHORUS 3.7 mg/dl (2.5-4.9); POTASSIUM 3.9 mmol/L (3.5-5.1); SODIUM 142 mmol/L (135-144)
[2017-11-14] MEDS: HYDROmorphONE 0.5 MG/0.5 ML SYG IV ×2 (09:48→13:21)
[2017-11-14] MEDS: VALSARTAN 160 MG TAB PO (09:52)
[2017-11-14] MEDS: RANOLAZINE (SR) 500 MG TAB PO ×2 (09:52→21:40)
[2017-11-14] MEDS: FAMOTIDINE 20 MG TAB PO (09:53)
[2017-11-14] MEDS: AMLODIPINE 10 MG TAB PO (09:53)
[2017-11-14] MEDS: DOCUSATE SODIUM 100 MG CAP PO ×2 (09:58→21:36)
[2017-11-14] MEDS: DONEPEZIL 5 MG TAB PO (09:58)
[2017-11-14] MEDS: SENNA TAB PO (21:36)
[2017-11-14] MEDS: ATORVASTATIN 10 MG TAB PO (21:36)
[2017-11-14] MEDS: TAMSULOSIN (SR) 0.4 MG CAP PO (21:36)
[2017-11-15] MEDS: LEVOTHYROXINE 88 MCG TAB PO (06:03)
[2017-11-15] MEDS: HYDROmorphONE 0.5 MG/0.5 ML SYG IV ×3 (07:37→15:41)
[2017-11-15] MEDS: VALSARTAN 160 MG TAB PO (08:50)
[2017-11-15] MEDS: FAMOTIDINE 20 MG TAB PO (08:51)
[2017-11-15] MEDS: RANOLAZINE (SR) 500 MG TAB PO ×2 (08:51→20:36)
[2017-11-15] MEDS: AMLODIPINE 10 MG TAB PO (08:51)
[2017-11-15] MEDS: DONEPEZIL 5 MG TAB PO (08:51)
[2017-11-15] MEDS: DOCUSATE SODIUM 100 MG CAP PO ×2 (08:51→20:35)
[2017-11-15] MEDS: ATORVASTATIN 10 MG TAB PO (20:35)
[2017-11-15] MEDS: SENNA TAB PO (20:35)
[2017-11-15] MEDS: TAMSULOSIN (SR) 0.4 MG CAP PO (20:35)
[2017-11-16] MEDS: LEVOTHYROXINE 88 MCG TAB PO (06:12)
[2017-11-16] MEDS: RANOLAZINE (SR) 500 MG TAB PO ×2 (09:35→20:24)
[2017-11-16] MEDS: AMLODIPINE 10 MG TAB PO (09:35)
[2017-11-16] MEDS: DONEPEZIL 5 MG TAB PO (09:36)
[2017-11-16] MEDS: FAMOTIDINE 20 MG TAB PO (09:36)
[2017-11-16] MEDS: DOCUSATE SODIUM 100 MG CAP PO ×2 (09:36→20:25)
[2017-11-16] MEDS: VALSARTAN 160 MG TAB PO (09:36)
[2017-11-16] MEDS: TAMSULOSIN (SR) 0.4 MG CAP PO (20:25)
[2017-11-16] MEDS: SENNA TAB PO (20:25)
[2017-11-16] MEDS: ATORVASTATIN 10 MG TAB PO (20:25)
[2017-11-17] MEDS: LEVOTHYROXINE 88 MCG TAB PO (06:18)
[2017-11-17] MEDS: DOCUSATE SODIUM 100 MG CAP PO ×2 (08:33→21:00)
[2017-11-17] MEDS: VALSARTAN 160 MG TAB PO (08:33)
[2017-11-17] MEDS: FAMOTIDINE 20 MG TAB PO (08:34)
[2017-11-17] MEDS: RANOLAZINE (SR) 500 MG TAB PO ×2 (08:34→21:01)
[2017-11-17] MEDS: AMLODIPINE 10 MG TAB PO (08:34)
[2017-11-17] MEDS: DONEPEZIL 5 MG TAB PO (08:41)
[2017-11-17] MEDS: SENNA TAB PO (21:00)
[2017-11-17] MEDS: ATORVASTATIN 10 MG TAB PO (21:01)
[2017-11-17] MEDS: TAMSULOSIN (SR) 0.4 MG CAP PO (21:01)
[2017-11-18] MEDS: LEVOTHYROXINE 88 MCG TAB PO (06:32)
[2017-11-18] MEDS: VALSARTAN 160 MG TAB PO (08:55)
[2017-11-18] MEDS: AMLODIPINE 10 MG TAB PO (08:55)
[2017-11-18] MEDS: DOCUSATE SODIUM 100 MG CAP PO ×2 (08:55→20:46)
[2017-11-18] MEDS: RANOLAZINE (SR) 500 MG TAB PO ×2 (08:55→20:47)
[2017-11-18] MEDS: DONEPEZIL 5 MG TAB PO (08:56)
[2017-11-18] MEDS: FAMOTIDINE 20 MG TAB PO (08:56)
[2017-11-18] MEDS: ATORVASTATIN 10 MG TAB PO (20:47)
[2017-11-18] MEDS: SENNA TAB PO (20:47)
[2017-11-18] MEDS: TAMSULOSIN (SR) 0.4 MG CAP PO (20:48)
[2017-11-19] MEDS: LEVOTHYROXINE 88 MCG TAB PO (06:46)
[2017-11-19] MEDS: RANOLAZINE (SR) 500 MG TAB PO ×2 (08:43→21:11)
[2017-11-19] MEDS: DONEPEZIL 5 MG TAB PO (08:44)
[2017-11-19] MEDS: FAMOTIDINE 20 MG TAB PO (08:44)
[2017-11-19] MEDS: DOCUSATE SODIUM 100 MG CAP PO ×2 (08:44→21:11)
[2017-11-19] MEDS: AMLODIPINE 10 MG TAB PO (08:44)
[2017-11-19] MEDS: VALSARTAN 160 MG TAB PO (08:44)
[2017-11-19] MEDS: SENNA TAB PO (21:11)
[2017-11-19] MEDS: ATORVASTATIN 10 MG TAB PO (21:11)
[2017-11-19] MEDS: TAMSULOSIN (SR) 0.4 MG CAP PO (21:11)
[2017-11-20] MEDS: LEVOTHYROXINE 88 MCG TAB PO (06:47)
[2017-11-20] MEDS: DONEPEZIL 5 MG TAB PO (09:05)
[2017-11-20] MEDS: DOCUSATE SODIUM 100 MG CAP PO ×2 (09:05→20:19)
[2017-11-20] MEDS: AMLODIPINE 5 MG TAB PO (09:05)
[2017-11-20] MEDS: RANOLAZINE (SR) 500 MG TAB PO ×2 (09:06→20:19)
[2017-11-20] MEDS: FAMOTIDINE 20 MG TAB PO (09:06)
[2017-11-20] MEDS: VALSARTAN 160 MG TAB PO (09:06)
[2017-11-20] MEDS: ATORVASTATIN 10 MG TAB PO (20:19)
[2017-11-20] MEDS: TAMSULOSIN (SR) 0.4 MG CAP PO (20:19)
[2017-11-20] MEDS: SENNA TAB PO (20:19)
[2017-11-21] MEDS: LEVOTHYROXINE 88 MCG TAB PO (06:17)
[2017-11-21] MEDS: FAMOTIDINE 20 MG TAB PO (09:54)
[2017-11-21] MEDS: VALSARTAN 160 MG TAB PO (09:54)
[2017-11-21] MEDS: DOCUSATE SODIUM 100 MG CAP PO ×2 (09:54→20:58)
[2017-11-21] MEDS: AMLODIPINE 5 MG TAB PO (09:55)
[2017-11-21] MEDS: DONEPEZIL 5 MG TAB PO (09:55)
[2017-11-21] MEDS: RANOLAZINE (SR) 500 MG TAB PO ×2 (09:55→20:59)
[2017-11-21] MEDS: SENNA TAB PO (20:58)
[2017-11-21] MEDS: ATORVASTATIN 10 MG TAB PO (20:58)
[2017-11-21] MEDS: TAMSULOSIN (SR) 0.4 MG CAP PO (20:59)
[2017-11-22] MEDS: LEVOTHYROXINE 88 MCG TAB PO (06:26)
[2017-11-22] MEDS: DOCUSATE SODIUM 100 MG CAP PO ×2 (09:24→20:57)
[2017-11-22] MEDS: RANOLAZINE (SR) 500 MG TAB PO ×2 (09:24→20:56)
[2017-11-22] MEDS: FAMOTIDINE 20 MG TAB PO (09:24)
[2017-11-22] MEDS: DONEPEZIL 5 MG TAB PO (09:25)
[2017-11-22] MEDS: VALSARTAN 160 MG TAB PO (09:25)
[2017-11-22] MEDS: AMLODIPINE 5 MG TAB PO (09:26)
[2017-11-22] MEDS: SENNA TAB PO (20:57)
[2017-11-22] MEDS: ATORVASTATIN 10 MG TAB PO (20:57)
[2017-11-22] MEDS: TAMSULOSIN (SR) 0.4 MG CAP PO (20:58)
[2017-11-23] MEDS: LEVOTHYROXINE 88 MCG TAB PO (06:06)
[2017-11-23] MEDS: FAMOTIDINE 20 MG TAB PO (08:22)
[2017-11-23] MEDS: DOCUSATE SODIUM 100 MG CAP PO (08:22)
[2017-11-23] MEDS: RANOLAZINE (SR) 500 MG TAB PO (08:22)
[2017-11-23] MEDS: VALSARTAN 160 MG TAB PO (08:23)
[2017-11-23] MEDS: AMLODIPINE 5 MG TAB PO (08:23)
[2017-11-23] MEDS: DONEPEZIL 5 MG TAB PO (09:22)
== END 2017-11-23 15:00 | disposition home health service (06) | DRG 64 ==
LOC: VRC 11:03
PROC: F07Z5ZZ Bed Mobility Treatment (ICD-10-PCS; principal; 2017-11-11)
PROC: F08Z2ZZ Grooming/Personal Hygiene Treatment (ICD-10-PCS; 2017-11-11)
PROC: F06Z6ZZ Communicative/Cognitive Integration Skills Treatment (ICD-10-PCS; 2017-11-11)
DX: I62.00 Nontraumatic subdural hemorrhage, unspecified (principal); G93.40 Encephalopathy, unspecified; F03.90 Unspecified dementia, unspecified severity, without behavioral disturbance, psychotic disturbance, mood disturbance, and anxiety; I35.0 Nonrheumatic aortic (valve) stenosis; Z95.1 Presence of aortocoronary bypass graft; I10 Essential (primary) hypertension; E03.9 Hypothyroidism, unspecified; I25.10 Atherosclerotic heart disease of native coronary artery without angina pectoris; Z86.73 Personal history of transient ischemic attack (TIA), and cerebral infarction without residual deficits; Z95.810 Presence of automatic (implantable) cardiac defibrillator; N40.0 Benign prostatic hyperplasia without lower urinary tract symptoms
CPT/HCPCS: 70450; 80048; 80053; 81001; 83735; 84100; 85025; 87081; 87086; 92507; 92523; 97110; 97112; 97116; 97150; 97163; 97167; 97530; 97535; 97542

== ENCOUNTER 2018-08-15 20:46 | Emergency (ER) | payer MEDICARE, OTHER ==
[2018-08-15] MEDS: NICARDipine HCL 30 MG CAPSULE PO (21:14)
== END 2018-08-15 21:45 | disposition home or self-care (01) ==
LOC: E/R 20:46
DX: I10 Essential (primary) hypertension (principal); E03.9 Hypothyroidism, unspecified; Z86.73 Personal history of transient ischemic attack (TIA), and cerebral infarction without residual deficits; Z87.891 Personal history of nicotine dependence; Z95.1 Presence of aortocoronary bypass graft
CPT/HCPCS: 99283